=== PATIENT | male | born 1995 | race African-American/Black ===

== ENCOUNTER 2023-03-30 12:59 | Emergency (ER) | payer SELFPAY ==
[2023-03-30] MEDS ORDERED: Sodium Chloride 0.9% 10 ML Syringe FLUSH PRN (13:40)
[2023-03-30] MEDS ORDERED: Aspirin 81 MG Tab.Chew PO ONE (14:05)
[2023-03-30 14:10] LABS: BASOPHILS ABSOLUTE AUTO 0.02 K/mm3 (0.01-0.08); BASOPHILS PERCENT AUTO 0.6 % (0.1-1.2); EOSINOPHILS ABSOLUTE AUTO 0.14 K/mm3 (0.04-0.54); EOSINOPHILS PERCENT AUTO 3.9 (0.8-7.0); HEMATOCRIT 44.5 % (40.1-51.0); HEMOGLOBIN 15.1 gm/dl (13.7-17.5); IMMATURE GRAN ABSOLUTE AUTO 0.01 K/mm3 (0.00-0.10); IMMATURE GRAN PERCENT AUTO 0.3 % (<=1.0); LYMPHOCYTES PERCENT AUTO 30.5 % (21.8-53.1); MEAN CORPUSCULAR HGB CONC 33.9 g/dl (32.2-35.5); MEAN CORPUSCULAR VOLUME 88.3 fl (79.0-92.2); MEAN PLATELET VOLUME 10.1 fl (9.4-12.3); MONOCYTES ABSOLUTE AUTO 0.28 K/mm3 (0.30-0.82); MONOCYTES PERCENT AUTO 7.8 % (5.3-12.2); NEUTROPHILS ABSOLUTE AUTO 2.06 K/mm3 (1.78-5.38); NEUTROPHILS PERCENT AUTO 56.9 % (34.0-67.9); PLATELET COUNT,PLT 226 K/mm3 (163-337); RED BLOOD CELL COUNT 5.04 M/mm3 (4.63-6.08); WHITE BLOOD CELL COUNT,WBC 3.61 K/mm3 (4.23-9.07)
[2023-03-30 14:16] LABS: INR 1.09; PROTHROMBIN TIME 11.6 SECONDS (9.7-12.0)
[2023-03-30 14:17] LABS: PTT,PARTIAL THROMBOPLSTIN TIME 32.2 SECONDS (21.7-31.4)
[2023-03-30 14:31] LABS: A/G RATIO 1.2 (1-2); ALANINE AMINOTRANSFERASE,ALT 23 U/L (16-63); ALBUMIN 3.8 g/dl (3.4-5.0); ALKALINE PHOSPHATASE 73 U/L (46-116); ASPARTATE AMNIOTRANSFERASE,AST 13 U/L (15-37); BILIRUBIN TOTAL 0.5 mg/dL (0.2-1.0); BLOOD UREA NITROGEN,BUN 9 mg/dL (7-18); CALCIUM 8.2 mg/dL (8.5-10.1); CARBON DIOXIDE,CO2 27 mEq/L (21-32); CHLORIDE,CL 104 mEq/L (98-107); EST CRCL DRUG DOSING (CG) 78.24 mL/min; ESTIMATED GFR 107 mL/min (>60); GLUCOSE RANDOM 79 mg/dL (70-99); MAGNESIUM 1.9 mg/dL (1.8-2.4); SODIUM,NA 137 mEq/L (136-145)
[2023-03-30 14:41] LABS: TROPONIN I HIGH SENSITIVITY < 4 pg/mL (<=76)
== END 2023-03-30 15:43 | disposition home or self-care (01) ==
LOC: JD.ED 12:59
DX: R07.89 Other chest pain (principal); F17.210 Nicotine dependence, cigarettes, uncomplicated; Z86.16 Personal history of COVID-19
CPT/HCPCS: 36415; 71045; 80053; 83735; 83880; 84484; 85025; 85610; 85730; 93005; 99285; A9270; J3490; 93010; 99283

== ENCOUNTER 2024-06-18 03:14 | Emergency (ER) | payer SELFPAY ==
[2024-06-18] MEDS: Silver Sulfadiazine 1% Crm 50 GM Tube TOP ONE (04:00)
== END 2024-06-18 04:08 | disposition home or self-care (01) ==
LOC: JD.ED 03:14
DX: T21.11XA Burn of first degree of chest wall, initial encounter (principal); Z86.16 Personal history of COVID-19; X15.0XXA Contact with hot stove (kitchen), initial encounter
CPT/HCPCS: 99283; A9270

== ENCOUNTER 2025-04-18 15:08 | Emergency (ER) | payer SELFPAY ==
[2025-04-18 15:38] LABS: BASOPHILS ABSOLUTE AUTO 0.0 K/mm3 (0.0-0.2); BASOPHILS PERCENT AUTO 0.6 % (0.0-1.0); EOSINOPHILS ABSOLUTE AUTO 0.2 K/mm3 (0.0-0.4); EOSINOPHILS PERCENT AUTO 4.2 % (0.0-6.0); IMMATURE GRAN ABSOLUTE AUTO 0.01 K/mm3 (0.00-0.05); IMMATURE GRAN PERCENT AUTO 0.3 % (0.0-0.4); LYMPHOCYTES ABSOLUTE AUTO 1.4 K/mm3 (1.0-4.8); LYMPHOCYTES PERCENT AUTO 37.7 % (24.0-44.0); MEAN PLATELET VOLUME 9.3 fl (9.4-12.4); MONOCYTES ABSOLUTE AUTO 0.3 K/mm3 (0.0-0.8); MONOCYTES PERCENT AUTO 7.0 % (0.0-8.0); NEUTROPHILS ABSOLUTE AUTO 1.8 K/mm3 (1.8-7.7); NEUTROPHILS PERCENT AUTO 50.2 % (41.0-71.0); NRBC ABSOLUTE 0.00 (0.00-0.02); NRBC PERCENT 0.0 % (0.0-0.2); PLATELET COUNT,PLT 187 K/mm3 (150-400); RED BLOOD CELL COUNT 5.00 M/mm3 (4.52-5.90); WHITE BLOOD CELL COUNT,WBC 3.58 K/mm3 (3.9-11.3)
[2025-04-18] MEDS: Ketorolac 30 MG/ML SDV IVPUSH ONE (15:43)
[2025-04-18 15:51] LABS: A/G RATIO 1.3 (1-2); ALANINE AMINOTRANSFERASE,ALT 25 U/L (16-63); ASPARTATE AMNIOTRANSFERASE,AST 18 U/L (15-37); BILIRUBIN TOTAL 0.3 mg/dL (0.2-1.0); BLOOD UREA NITROGEN,BUN 8 mg/dL (7-18); CARBON DIOXIDE,CO2 27 mEq/L (21-32); CHLORIDE,CL 108 mEq/L (98-107); CREATINE KINASE,CK 157 U/L (39-308); CREATININE 0.7 mg/dL (0.7-1.3); EST CRCL DRUG DOSING (CG) 110.76 mL/min; ESTIMATED GFR 130 mL/min (>60); GLUCOSE RANDOM 92 mg/dL (70-99); POTASSIUM,K 4.1 mEq/L (3.5-5.1); PROTEIN TOTAL,TP 6.9 g/dl (6.4-8.2); SODIUM,NA 141 mEq/L (136-145)
[2025-04-18 15:52] LABS: TROPONIN I HIGH SENSITIVITY < 4 pg/mL (<=76)
[2025-04-18 16:03] LABS: BUPRENORPHINE SCREEN,URINE NEGATIVE (CUTOFF=10); METHADONE SCREEN, URINE NEGATIVE (CUT0FF=200); METHAMPHETAMINES SCREEN, URINE NEGATIVE (CUTOFF=500); OXYCODONE SCREEN,URINE NEGATIVE (CUT0FF=100); THC SCREEN,URINE 20 NG/ML NEGATIVE (CUTOFF=50)
[2025-04-18 16:09] LABS: AMPHETAMINES SCREEN, URINE NEGATIVE (CUTOFF=500)
== END 2025-04-18 16:27 | disposition home or self-care (01) ==
LOC: JD.ED 15:08
DX: R07.89 Other chest pain (principal); Z86.16 Personal history of COVID-19
CPT/HCPCS: 36415; 71045; 80053; 80306; 82550; 83690; 83735; 84484; 85025; 93005; 96374; 99285; A9270; J1885

== ENCOUNTER 2025-08-31 19:40 | Emergency (ER) | payer OTHER | END 2025-08-31 20:59 | disposition home or self-care (01) | LOC: JD.ED 19:40 | DX: S90.31XA Contusion of right foot, initial encounter (principal); F17.200 Nicotine dependence, unspecified, uncomplicated; Z86.16 Personal history of COVID-19; W20.8XXA Other cause of strike by thrown, projected or falling object, initial encounter | CPT/HCPCS: 73600-26-RT; 73600-RT; 99283 ==